=== PATIENT | male | born 1940 | race Caucasian/White ===

== ENCOUNTER → 2019-02-05 | Outpatient (CLI) | payer MEDICARE | END | disposition home or self-care (01) | LOC: RAH 08:18 | PROVIDERS: ATTEND Internal Medicine | DX: I35.0 Nonrheumatic aortic (valve) stenosis (principal); I71.3 Abdominal aortic aneurysm, ruptured | CPT/HCPCS: 76770; 76775; 93306; 93975 ==

== ENCOUNTER → 2019-05-30 | Outpatient (CLI) | payer MEDICARE, OTHER | END | disposition home or self-care (01) | LOC: SHCH 10:58 | PROVIDERS: ATTEND Internal Medicine Cardiovascular Disease | DX: I35.8 Other nonrheumatic aortic valve disorders (principal); R01.1 Cardiac murmur, unspecified | CPT/HCPCS: 93306 ==

== ENCOUNTER 2021-04-25 05:57 | Day surgery (SDC) | payer OTHER ==
[2021-04-24 11:48] LABS: BASOPHILS % (AUTO) 0.2 % (0.0-5.0); EOSINOPHILS % (AUTO) 4.9 % (0.0-8.0); LYMPHOCYTES % (AUTO) 13.5 % (21.0-51.0); MEAN CORPUSCULAR HEMOGLOBIN 26.6 pg (27.0-33.0); MEAN CORPUSCULAR HGB CONC 31.9 g/dL (32.0-36.0); MEAN CORPUSCULAR VOLUME 83.2 fL (79-99); MONOCYTES % (AUTO) 16.1 % (3.0-13.0); NEUTROPHILS % (AUTO) 65.1 % (40.0-77.0); PLATELET COUNT (AUTO) 292 K/uL (130-400); RED BLOOD CELL COUNT(AUTO) 6.25 MIL/uL (4.50-6.20); RED CELL DISTRIBUTION WIDTH 16.7 % (11.0-15.5); WHITE BLOOD COUNT (AUTO) 4.3 K/uL (4.8-10.8)
[2021-04-24 11:56] LABS: POTASSIUM 4.1 mmol/L (3.5-5.1)
[2021-04-24 12:00] LABS: INR 1.12 (0.85-1.15); PROTHROMBIN TIME 12.1 SEC (9.6-11.6)
[2021-04-24 12:01] LABS: PARTIAL THROMBOPLASTIN TIME 29.7 SEC (26.3-35.5)
[2021-04-24 13:13] VITALS: BP 185/93
[~2021-04-25] VITALS: Ht 182.9 cm; Wt 79.5 kg
[2021-04-25] VITALS (12 sets, daily range): BP systolic 121–169; BP diastolic 70–95
[~2021-04-25 05:57] MED LIST: CYAN50009 PO; FOLI0.4T6 PO; MULT-1082 PO; SAW450CA7 PO; VITAMIN D3 PO; [UNRECOGNIZED DRUG - OTHER] PO
[2021-04-25] MEDS ORDERED: 0.9%NACL 1000ML 1,000 ML IV ONE (06:18)
[2021-04-25] MEDS ORDERED: IOHEXOL-350 50ML VIAL IV ONE ×2 (07:07→07:51)
[2021-04-25] MEDS ORDERED: IOHEXOL 350 MG/ML 100ML INFUS..BTL IV ONE (07:07)
[2021-04-25] MEDS ORDERED: LIDOCAINE HCL 400MG/20ML VIAL ONE (07:07)
[2021-04-25] MEDS ORDERED: HEPARIN 10,000 UNIT/10ML (1,000 UNIT/ML) VIAL ONE (07:07)
[2021-04-25] MEDS ORDERED: ASPIRIN 325MG EC TAB PO ONE (07:58)
[2021-04-25] MEDS ORDERED: CLOPIDOGREL 300MG TAB ONE (07:58)
[2021-04-25] MEDS ORDERED: METOPROLOL TARTRATE 1 MG/ML 5ML VIAL IV ONE ×2 (07:59→08:15)
[2021-04-25] MEDS ORDERED: ONDANSETRON 4MG INJ IVP PRN (08:30)
[2021-04-25] MEDS ORDERED: ACETAMINOPHEN WITH CODEINE 1 TAB TAB PO PRN ×2 (08:30)
[2021-04-25] MEDS ORDERED: PANTOPRAZOLE 40 MG TAB DR PO SCH (09:00)
[2021-04-25] MEDS ORDERED: ASPIRIN 81MG CHEW TAB PO SCH (09:00)
[2021-04-25] MEDS ORDERED: CLOPIDOGREL 75MG TAB PO SCH (09:00)
== END 2021-04-25 15:05 | disposition home or self-care (01) ==
LOC: DAH 05:57
PROVIDERS: ATTEND Internal Medicine Cardiovascular Disease
DX: I35.0 Nonrheumatic aortic (valve) stenosis (principal); I35.1 Nonrheumatic aortic (valve) insufficiency; I25.10 Atherosclerotic heart disease of native coronary artery without angina pectoris; I10 Essential (primary) hypertension; M19.90 Unspecified osteoarthritis, unspecified site; M17.12 Unilateral primary osteoarthritis, left knee; G89.29 Other chronic pain; Z87.891 Personal history of nicotine dependence; Z98.890 Other specified postprocedural states; Z79.01 Long term (current) use of anticoagulants; Z79.899 Other long term (current) drug therapy
CPT/HCPCS: 36415 ×2; 71045; 80048; 85025; 85347; 85610; 85730; 93005; 93454; A4215; A4216; A4221; A4222; A4223 ×3; A4606; A4663; C1725; C1760; C1769; C1874; C1887; C1894; C9600; J1644 ×2; J3490 ×3; J7030; Q9965; Q9967 ×3